=== PATIENT | female | born 1985 | race American Indian/Alaskan Native ===

== ENCOUNTER 2016-12-18 19:59 | Emergency (ER) | payer SELFPAY ==
[2016-12-18] MEDS ORDERED: MOTRIN PO ONE (20:15)
[2016-12-18] MEDS ORDERED: MOTRIN ONE (20:19)
[2016-12-18 20:23] VITALS: BP 140/90
[2016-12-18] MEDS ORDERED: NORCO 5/325 PO ONE (21:04)
--- NOTE | 2016-12-18 21:10 | Emergency Department Report ---
ED ENT HPI - General Chief complaint: Dental/Oral Stated complaint: TOOTH INFECTION Time Seen by Provider: 12/18/16 21:01 Source: patient Mode of arrival: Ambulatory Limitations: No Limitations - History of Present Illness Initial comments: pt is a 31 y/o aaf with hx of infected dental carries x 2 months who presents for dental pain that has increased over past 2 weeks pt has been unable to make dental appointment until this point, now presents with dental pain and aching 7/ 10 throbbing pain is relieved by nothing, pain is exacerbated by hot and cold sensation pt unable to eat on right side, pt is tolerating po intake on left side, last meal this evening, pt seen at other ed on and dx with dental abscess, however pt did not get medications or follow up with dentist yet, pt presents tonight requesting pain medication. MD complaint: tooth pain Onset/Timin -: week(s) Location: tooth # (32) Severity: moderate Severity scale (0 -10): 7 Quality: aching, sharp Consistency: constant Improves with: other (nothing tried) Worsens with: eating Associated Symptoms: gum swelling, toothache. denies: fever, cough, pain with swallowing, sore throat, tinnitus, hearing loss, discharge from ear, rhinorrhea - Related Data Previous Rx's Medication Instructions Recorded Last Taken Type Amoxicillin/K Clav Tab [Augmentin 1 tab PO Q12HR #20 tab 12/18/16 Unknown Rx 875 mg] Chlorhexidine Mouthwash [Peridex] 15 ml MM BID #1 bottle 12/18/16 Unknown Rx Tramadol HCl [Ultram ER] 300 mg PO Q6H #24 tab.er.24h 12/18/16 Unknown Rx Allergies Allergy/AdvReac Type Severity Reaction Status Date / Time No Known Allergies Allergy Verified 12/18/16 20:21 ED Dental HPI - General Chief complaint: Dental/Oral Stated complaint: TOOTH INFECTION Time Seen by Provider: 12/18/16 21:01 Source: patient Mode of arrival: Ambulatory Limitations: No Limitations - Related Data Previous Rx's Medication Instructions Recorded Last Taken Type Amoxicillin/K Clav Tab [Augmentin 1 tab PO Q12HR #20 tab 12/18/16 Unknown Rx 875 mg] Chlorhexidine Mouthwash [Peridex] 15 ml MM BID #1 bottle 12/18/16 Unknown Rx Tramadol HCl [Ultram ER] 300 mg PO Q6H #24 tab.er.24h 12/18/16 Unknown Rx Allergies Allergy/AdvReac Type Severity Reaction Status Date / Time No Known Allergies Allergy Verified 12/18/16 20:21 ED Review of Systems ROS: Stated complaint: TOOTH INFECTION Other details as noted in HPI Constitutional: denies: chills, fever Eyes: denies: eye pain, eye discharge, vision change ENT: dental pain. denies: ear pain, throat pain, hearing loss, epistaxis, congestion Respiratory: denies: cough, shortness of breath, wheezing Cardiovascular: denies: chest pain, palpitations Endocrine: no symptoms reported Gastrointestinal: denies: abdominal pain, nausea, diarrhea Genitourinary: denies: urgency, dysuria, discharge Musculoskeletal: denies: back pain, joint swelling, arthralgia Skin: denies: rash, lesions Neurological: denies: headache, weakness, paresthesias Psychiatric: denies: anxiety, depression Hematological/Lymphatic: denies: easy bleeding, easy bruising ED Past Medical Hx - Past Medical History Previous Medical History?: No - Surgical History Past Surgical History?: No - Medications Home Medications: Home Medications Medication Instructions Recorded Confirmed Last Taken Type Amoxicillin/K Clav Tab [Augmentin 1 tab PO Q12HR #20 tab 12/18/16 Unknown Rx 875 mg] Chlorhexidine Mouthwash [Peridex] 15 ml MM BID #1 bottle 12/18/16 Unknown Rx Tramadol HCl [Ultram ER] 300 mg PO Q6H #24 tab.er.24h 12/18/16 Unknown Rx ED Physical Exam - General Limitations: No Limitations General appearance: alert, in no apparent distress - Head Head exam: Present: atraumatic, normocephalic - Eye Eye exam: Present: normal appearance - ENT ENT exam: Present: mucous membranes moist, TM's normal bilaterally, normal external ear exam - Expanded ENT Exam Expanded Mouth exam: Present: tongue normal. Absent: drooling, trismus, muffled voice, tongue elevation Teeth exam: Present: dental caries, dental tenderness # (32). Absent: gingival enlargement 1 - Dental Tenderness, Other (mild swelling erythema) Throat exam: Positive: normal inspection - Neck Neck exam: Present: normal inspection, full ROM. Absent: lymphadenopathy, thyromegaly - Respiratory Respiratory exam: Present: normal lung sounds bilaterally. Absent: respiratory distress - Cardiovascular Cardiovascular Exam: Present: regular rate, normal rhythm. Absent: systolic murmur, diastolic murmur, rubs, gallop - GI/Abdominal GI/Abdominal exam: Present: soft - Rectal Rectal exam: Present: deferred - Back Exam Back exam: Present: normal inspection - Neurological Exam Neurological exam: Present: alert, oriented X3 - Psychiatric Psychiatric exam: Present: normal affect, normal mood - Skin Skin exam: Present: warm, dry, intact, normal color. Absent: rash ED Course Vital Signs 12/18/16 20:10 Temperature 98.9 F Pulse Rate 80 Respiratory 18 Rate Blood Pressure 140/90 O2 Sat by Pulse 98 Oximetry ED Medical Decision Making - Medical Decision Making pt is a 31 y/o aaf with hx of infected dental carries x 2 months who presents for dental pain that has increased over past 2 weeks pt has been unable to make dental appointment until this point, now presents with dental pain and aching 7/ 10 throbbing pain is relieved by nothing, pain is exacerbated by hot and cold sensation pt unable to eat on right side, pt is tolerating po intake on left side, last meal this evening, pt seen at other ed on and dx with dental abscess, however pt did not get medications or follow up with dentist yet, pt presents tonight requesting pain medication. exam: infected dental caries to # 32 mild gum erythema and swelling mild facial tenderness and swelling, there is no trismus no ear pain no throat pain no fever pt is tolerating po intake eating just prior to exam. plan: augmentin, peridex, ultram pt will follow with [facility] [place] [phone] [facility] [phone] call to set up appointment pt advised to take medications as prescribed , pt verbalized agreement understanding of discharge plan. Critical care attestation.: If time is entered above; I have spent that time in minutes in the direct care of this critically ill patient, excluding procedure time. ED Disposition Clinical Impression: Infected dental caries Disposition: TO HOME OR SELFCARE Is pt being admited?: No Does the pt Need Aspirin: No Condition: Good Instructions: Dental Caries (ED) Additional Instructions: follow up with [facility] [phone] Prescriptions: Amoxicillin/K Clav Tab [Augmentin 875 mg] 1 tab PO Q12HR #20 tab Chlorhexidine Mouthwash [Peridex] 15 ml MM BID #1 bottle Tramadol HCl [Ultram ER] 300 mg PO Q6H #24 tab.er.24h Forms: Work/School Release Form(ED) Time of Disposition: 21:22
== END 2016-12-18 21:25 | disposition home or self-care (01) ==
LOC: ED 19:59
DX: K02.9 Dental caries, unspecified (principal); K04.7 Periapical abscess without sinus
CPT/HCPCS: 99282

== ENCOUNTER 2018-12-07 15:00 | Emergency (ER) | payer MEDICAID ==
--- NOTE | 2018-12-07 15:14 | Event Note ---
ED Screening Note Date of service: 12/07/18 Time: 15:11 ED Screening Note: 32 y female presents for vaginal bleeding and pelvic cramping stating she feels her mirena poking out mirena palced almost 6 years This initial assessment/diagnostic orders/clinical plan/treatment(s) is/are subject to change based on patients health status, clinical progression and re- assessment by fellow clinical providers in the ED. Further treatment and workup at subsequent clinical providers discretion. Patient/guardian urged not to elope from the ED as their condition may be serious if not clinically assessed and managed. Initial orders include: ua,upt
[2018-12-07 17:13] LABS: Bilirubin,Urine NEG (Negative); Blood,Urine NEG (Negative); Color,Urine Yellow (Yellow); HCG Qualitative,Urine Negative (Negative); Mucus,Urine 1+ /HPF; Protein,Urine <15 mg/dL mg/dL (Negative); Urobilinogen,Urine < 2.0 mg/dL (<2.0)
[2018-12-07] MEDS ORDERED: ULTRAM PO ONE (19:12)
--- NOTE | 2018-12-07 20:34 | Ultrasound Report ---
Transabdominal and transvaginal pelvic ultrasound INDICATION / CLINICAL INFORMATION: Pelvic pain; IUD problem. COMPARISON: None available. FINDINGS: The study is technically difficult due to a retroverted uterus and patient discomfort. Transabdominal images demonstrate that the uterus measures 8.0 x 4.6 x 5.5 cm. The endometrial stripe is not well s een. I do not identify the IUD. Neither ovary is identified. Images of the urinary bladder are normal . Transvaginal scanning demonstrates the endometrial stripe measures 3.7 mm. There is questionable visu alization of the IUD in the endometrial cavity on one image. The right ovary measures 3.0 x 2.5 x 3.2 cm. The left ovary is not seen. No free fluid is identified. IMPRESSION: Suboptimal, difficult examination. There is questionable visualization of the IUD in the endometrial cavity on one image. This is not a definite finding however. Signer Name: Juan Tavarez MD Signed: 12/07/2018 8:30 PM Workstation Name: [id number]
--- NOTE | 2018-12-07 22:03 | Emergency Department Report ---
ED Female HPI - General Chief complaint: Vaginal Bleeding Stated complaint: IUD/SEVERE PAIN AND BLEEDING Time Seen by Provider: 12/07/18 15:11 Source: patient Mode of arrival: Ambulatory Limitations: No Limitations - History of Present Illness Initial comments: Patient 32-year-old -[place] female who presents for vaginal bleeding spotting for 3 months patient has IUD states she's ready for to come out she's had a for the last 5 years there's no fevers no chills no nausea no vomiting Denies vaginal discharge /R menstrual cycle 3 months ago Complaint: vaginal bleeding Onset/Timin -: month(s) Location: suprapubic Radiation: non-radiating Severity: moderate Severity scale (0 -10): 4 Quality: cramping Consistency: constant Improves with: none Worsens with: none Are you Now?: No Last Menstrual Period: 09/28/18 EDC: 07/05/19 Associated Symptoms: vaginal bleeding. denies: dysuria, hematuria - Related Data Sexually active: Yes : 4 Para: 4 A: 0 Previous Rx's Medication Instructions Recorded Last Taken Type Amoxicillin/K Clav Tab [Augmentin 1 tab PO Q12HR #20 tab 12/18/16 Unknown Rx 875 mg] Chlorhexidine Mouthwash [Peridex] 15 ml MM BID #1 bottle 12/18/16 Unknown Rx Tramadol HCl [Ultram ER] 300 mg PO Q6H #24 tab.er.24h 12/18/16 Unknown Rx Ibuprofen [Motrin 800 MG tab] 800 mg PO Q8HR PRN #30 tablet 12/07/18 Unknown Rx Nitrofurantoin [place]/M-Cryst 100 mg PO BID 7 Days #14 capsule 12/07/18 Unknown Rx [Macrobid CAP] Allergies Allergy/AdvReac Type Severity Reaction Status Date / Time No Known Allergies Allergy Verified 12/18/16 20:21 ED Review of Systems ROS: Stated complaint: IUD/SEVERE PAIN AND BLEEDING Other details as noted in HPI Constitutional: denies: chills, fever Eyes: denies: eye pain, eye discharge, vision change ENT: denies: ear pain, throat pain Respiratory: denies: cough, shortness of breath, wheezing Cardiovascular: denies: chest pain, palpitations Endocrine: no symptoms reported Gastrointestinal: denies: abdominal pain, nausea, vomiting, diarrhea Genitourinary: frequency, abnormal menses. denies: urgency, dysuria, hematuria, discharge, dyspareunia Musculoskeletal: denies: back pain, joint swelling, arthralgia Skin: denies: rash, lesions Neurological: denies: headache, weakness, numbness, paresthesias, confusion, vertigo Psychiatric: denies: anxiety, depression Hematological/Lymphatic: denies: easy bleeding, easy bruising ED Past Medical Hx - Past Medical History Previous Medical History?: No - Surgical History Past Surgical History?: No - Social History Smoking Status: Never Smoker Substance Use Type: Marijuana - Medications Home Medications: Home Medications Medication Instructions Recorded Confirmed Last Taken Type Amoxicillin/K Clav Tab [Augmentin 1 tab PO Q12HR #20 tab 12/18/16 Unknown Rx 875 mg] Chlorhexidine Mouthwash [Peridex] 15 ml MM BID #1 bottle 12/18/16 Unknown Rx Tramadol HCl [Ultram ER] 300 mg PO Q6H #24 tab.er.24h 12/18/16 Unknown Rx Ibuprofen [Motrin 800 MG tab] 800 mg PO Q8HR PRN #30 tablet 12/07/18 Unknown Rx Nitrofurantoin [place]/M-Cryst 100 mg PO BID 7 Days #14 capsule 12/07/18 Unknown Rx [Macrobid CAP] ED Physical Exam - General Limitations: No Limitations General appearance: alert, in no apparent distress - Head Head exam: Present: atraumatic, normocephalic - Eye Eye exam: Present: normal appearance, PERRL, EOMI Pupils: Present: normal accommodation - ENT ENT exam: Present: normal orophraynx, mucous membranes moist, TM's normal bilaterally, normal external ear exam - Neck Neck exam: Present: normal inspection, full ROM. Absent: tenderness, meningismus, lymphadenopathy, thyromegaly - Respiratory Respiratory exam: Present: normal lung sounds bilaterally, wheezes. Absent: respiratory distress, stridor, chest wall tenderness - Cardiovascular Cardiovascular Exam: Present: regular rate, normal rhythm, normal heart sounds. Absent: systolic murmur, diastolic murmur, rubs, gallop - GI/Abdominal GI/Abdominal exam: Present: soft, tenderness ( superpubic ), normal bowel sounds, hernia. Absent: distended, guarding, rebound, rigid, bruit - Rectal Rectal exam: Present: deferred - External exam: Present: other (deferred by patient ) - Extremities Exam Extremities exam: Present: normal inspection, normal capillary refill. Absent: full ROM, tenderness, pedal edema, joint swelling, calf tenderness - Back Exam Back exam: Present: normal inspection. Absent: full ROM, tenderness, CVA tenderness (R), CVA tenderness (L), muscle spasm, paraspinal tenderness, rash noted - Neurological Exam Neurological exam: Present: alert, oriented X3, CN II-XII intact, normal gait, reflexes normal. Absent: motor sensory deficit - Psychiatric Psychiatric exam: Present: normal affect, normal mood - Skin Skin exam: Present: warm, dry, intact, normal color. Absent: rash ED Course Vital Signs 12/07/18 12/07/18 15:08 19:23 Pulse Rate 82 Respiratory 16 16 Rate Blood Pressure 111/71 O2 Sat by Pulse 100 Oximetry ED Medical Decision Making - Lab Data Labs 12/07/18 16:15 Urine Color Yellow Urine Turbidity Slightly-cloudy Urine pH 5.0 Ur Specific [place] 1.016 Urine Protein <15 mg/dl Urine Glucose (UA) Neg Urine Ketones Neg Urine Blood Neg Urine Nitrite Neg Urine Bilirubin Neg Urine Urobilinogen < 2.0 Ur Leukocyte Esterase Mod Urine WBC (Auto) 8.0 H Urine RBC (Auto) 3.0 U Epithel Cells (Auto) 8.0 Urine Mucus 1+ Urine HCG, Qual Negative - Radiology Data Radiology results: report reviewed, image reviewed Ordering Physician: GREGORY GOETZ NP Date of Service: 12/07/18 Procedure(s): US transvaginal Accession Number(s): [id number] cc: GREGORY GOETZ NP Transabdominal and transvaginal pelvic ultrasound INDICATION / CLINICAL INFORMATION: Pelvic pain; IUD problem. COMPARISON: None available. FINDINGS: The study is technically difficult due to a retroverted uterus and patient discomfort. Transabdominal images demonstrate that the uterus measures 8.0 x 4.6 x 5.5 cm. The endometrial stripe is not well seen. I do not identify the IUD. Neither ovary is identified. Images of the urinary bladder are normal. Transvaginal scanning demonstrates the endometrial stripe measures 3.7 mm. There is questionable visualization of the IUD in the endometrial cavity on one image. The right ovary measures 3.0 x 2.5 x 3.2 cm. The left ovary is not seen. No free fluid is identified. IMPRESSION: Suboptimal, difficult examination. There is questionable visualization of the IUD in the endometrial cavity on one image. This is not a definite finding however. Signer Name: Juan Tavarez MD Signed: 12/07/2018 8:30 PM Workstation Name: [id number] Transcribed By: RT Dictated By: Juan Tavarez MD Electronically Authenticated By: Juan Tavarez MD Signed Date/Time: 12/07/182029 DD/ 25 TD/TT: - Medical Decision Making Ultrasound questionable ED UA positive for leukocytes , white cells, , plan treatment for UTI follow with [employer] for IUD removal, pt verbalized agreement and understanding of same. Critical care attestation.: If time is entered above; I have spent that time in minutes in the direct care of this critically ill patient, excluding procedure time. ED Disposition Clinical Impression: UTI (urinary tract infection) Qualifiers: Urinary tract infection type: acute cystitis Hematuria presence: without judson turia Qualified Code(s): N30.00 - Acute cystitis without hematuria IUD complication Qualifiers: Device complication type: unspecified Encounter type: initial encounter Qualified Code(s): T83.9XXA - Unspecified complication of genitourinary prosthetic device, implant and graft, initial encounter Disposition: - TO HOME OR SELFCARE Is pt being admited?: Yes Does the pt Need Aspirin: No Condition: Stable Instructions: Urinary Tract Infection in Women (ED) Prescriptions: Nitrofurantoin [place]/M-Cryst [Macrobid CAP] 100 mg PO BID 7 Days #14 capsule Ibuprofen [Motrin 800 MG tab] 800 mg PO Q8HR PRN #30 tablet PRN Reason: pain fever Referrals: CHANELLE MARTIN MD [Staff Physician] - 3-5 Days Forms: Work/School Release Form(ED) Time of Disposition: 22:13
[2018-12-07 22:26] VITALS: BP 112/78
== END 2018-12-07 22:25 | disposition home or self-care (01) ==
LOC: ED 15:00
DX: T83.83XA Hemorrhage due to genitourinary prosthetic devices, implants and grafts, initial encounter (principal); N39.0 Urinary tract infection, site not specified; F12.90 Cannabis use, unspecified, uncomplicated; Z79.899 Other long term (current) drug therapy; Y84.8 Other medical procedures as the cause of abnormal reaction of the patient, or of later complication, without mention of misadventure at the time of the procedure; Y92.89 Other specified places as the place of occurrence of the external cause
CPT/HCPCS: 76830; 76856; 81001; 81025; 99284

== ENCOUNTER 2019-11-30 16:37 | Emergency (ER) | payer MEDICAID ==
[2019-12-01] MEDS ORDERED: SODIUM CHLORIDE 0.9% 1000 ML 1,000 ML IV ONE (04:14)
[2019-12-01] MEDS ORDERED: methylPREDNISolone Sod Succinate 125 MG/2 ML INJ IV ONE (04:14)
--- NOTE | 2019-12-01 04:16 | Emergency Department Report ---
- General Chief Complaint: Upper Respiratory Infection Stated Complaint: SOB/SORE THROAT/TONGUE IS NUMB PUI?: No Time Seen by Provider: 12/01/19 02:53 Source: patient Mode of arrival: Ambulatory Limitations: No Limitations - History of Present Illness Initial Comments: Patient is a 33-year-old female that presents emergency room with complaints of sore throat, coughing, body aches, chills and shortness of breath. Patient states her symptoms started 2 days ago. Patient states her symptoms are worsening. Patient states her body aches are a 10 out of 10. Patient states that her throat feels scratchy. Patient states her symptoms are better with res t and worse with exertion. 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 Patient's not sure if she is coming contact with [place]. Patient denies nausea and vomiting. Patient denies diarrhea. Patient denies chest pain. Patient also complains of shortness of breath. Patient states her shortness of breath is better with rest and worse with exertion. MD Complaint: cough, sore throat, rhinorrhea -: Sudden, days(s) Severity: severe Severity scale (0 -10): 10 Consistency: constant Improves With: OTC cold medicine Worsens With: activity, deep breaths Associated Symptoms: chills, myalgias, rhinorrhea, sore throat, cough, shortness of breath. denies: fever, diaphoresis, headache, stiff neck, chest pain, abdominal pain, nausea, vomiting, diarrhea, dysuria, rash, confusion, right sweats, weight loss, epistaxis Treatments Prior to Arrival: Acetaminophen - Related Data Previous Rx's Medication Instructions Recorded Last Taken Type Amoxicillin/K Clav Tab [Augmentin 1 tab PO Q12HR #20 tab 12/18/16 Unknown Rx 875 mg] Chlorhexidine Mouthwash [Peridex] 15 ml MM BID #1 bottle 12/18/16 Unknown Rx Tramadol HCl [Ultram ER] 300 mg PO Q6H #24 tab.er.24h 12/18/16 Unknown Rx Ibuprofen [Motrin 800 MG tab] 800 mg PO Q8HR PRN #30 tablet 12/07/18 Unknown Rx Nitrofurantoin Roosevelt/M-Cryst 100 mg PO BID 7 Days #14 capsule 12/07/18 Unknown Rx [Macrobid CAP] Acetaminophen/Codeine [Tylenol 1 tab PO Q6H PRN #12 tab 12/01/19 Unknown Rx /Codeine # 3 tab] Azithromycin [Zithromax TAB] 500 mg PO QDAY 5 Days #5 tablet 12/01/19 Unknown Rx Dexamethasone [Taperdex] 1.5 mg PO DAILY 7 Days #1 tab.ds.pk 12/01/19 Unknown Rx Allergies Allergy/AdvReac Type Severity Reaction Status Date / Time No Known Allergies Allergy Verified 12/18/16 20:21 ED Review of Systems ROS: Stated complaint: SOB/SORE THROAT/TONGUE IS NUMB Other details as noted in HPI Constitutional: chills, malaise. denies: fever Eyes: denies: eye pain, eye discharge, vision change ENT: throat pain. denies: ear pain Respiratory: cough, shortness of breath. denies: wheezing Cardiovascular: denies: chest pain, palpitations Endocrine: no symptoms reported Gastrointestinal: denies: abdominal pain, nausea, diarrhea Genitourinary: denies: urgency, dysuria, discharge Musculoskeletal: denies: back pain, joint swelling, arthralgia Skin: denies: rash, lesions Neurological: denies: headache, weakness, paresthesias Psychiatric: denies: anxiety, depression Hematological/Lymphatic: denies: easy bleeding, easy bruising ED Past Medical Hx - Past Medical History Previous Medical History?: No - Surgical History Past Surgical History?: No - Family History Family history: no significant - Social History Smoking Status: Never Smoker Substance Use Type: Marijuana - Medications Home Medications: Home Medications Medication Instructions Recorded Confirmed Last Taken Type Amoxicillin/K Clav Tab [Augmentin 1 tab PO Q12HR #20 tab 12/18/16 Unknown Rx 875 mg] Chlorhexidine Mouthwash [Peridex] 15 ml MM BID #1 bottle 12/18/16 Unknown Rx Tramadol HCl [Ultram ER] 300 mg PO Q6H #24 tab.er.24h 12/18/16 Unknown Rx Ibuprofen [Motrin 800 MG tab] 800 mg PO Q8HR PRN #30 tablet 12/07/18 Unknown Rx Nitrofurantoin Roosevelt/M-Cryst 100 mg PO BID 7 Days #14 capsule 12/07/18 Unknown Rx [Macrobid CAP] Acetaminophen/Codeine [Tylenol 1 tab PO Q6H PRN #12 tab 12/01/19 Unknown Rx /Codeine # 3 tab] Azithromycin [Zithromax TAB] 500 mg PO QDAY 5 Days #5 tablet 12/01/19 Unknown Rx Dexamethasone [Taperdex] 1.5 mg PO DAILY 7 Days #1 tab.ds.pk 12/01/19 Unknown Rx ED Physical Exam - General Limitations: No Limitations General appearance: alert, in no apparent distress - Head Head exam: Present: atraumatic, normocephalic - Eye Eye exam: Present: normal appearance - ENT ENT exam: Present: normal orophraynx, mucous membranes moist - Neck Neck exam: Present: normal inspection - Respiratory Respiratory exam: Present: normal lung sounds bilaterally. Absent: respiratory distress, wheezes, rales, chest wall tenderness, accessory muscle use - Cardiovascular Cardiovascular Exam: Present: regular rate, normal rhythm. Absent: systolic murmur, diastolic murmur, rubs, gallop - GI/Abdominal GI/Abdominal exam: Present: soft, normal bowel sounds. Absent: distended, tenderness, guarding - Rectal Rectal exam: Present: deferred - Extremities Exam Extremities exam: Present: normal inspection - Back Exam Back exam: Present: normal inspection - Neurological Exam Neurological exam: Present: alert, oriented X3 - Psychiatric Psychiatric exam: Present: normal affect, normal mood - Skin Skin exam: Present: warm, dry, intact, normal color. Absent: rash ED Course Vital Signs 11/30/19 12/01/19 12/01/19 17:22 03:06 03:11 Temperature 98.1 F 98.3 F Pulse Rate 81 86 Respiratory 18 16 18 Rate Blood Pressure 126/88 Blood Pressure 119/85 [Left] O2 Sat by Pulse 99 99 Oximetry 12/01/19 12/01/19 12/01/19 03:16 03:30 03:45 Temperature Pulse Rate 80 86 78 Respiratory 17 21 26 H Rate Blood Pressure 152/125 152/125 141/86 Blood Pressure [Left] O2 Sat by Pulse 76 L 100 99 Oximetry 12/01/19 12/01/19 12/01/19 04:00 04:16 04:30 Temperature Pulse Rate 86 72 86 Respiratory 16 20 15 Rate Blood Pressure 141/86 141/86 141/86 Blood Pressure [Left] O2 Sat by Pulse 99 98 99 Oximetry 12/01/19 04:46 Temperature Pulse Rate 74 Respiratory 14 Rate Blood Pressure 131/66 Blood Pressure [Left] O2 Sat by Pulse 100 Oximetry - Reevaluation(s) Reevaluation #1: Patient given fluids and steroids. Patient states that she is feeling a little bit better. Patient has had normal oxygen saturations the entire time in the ER. Patient was ambulated and her oxygen saturations stayed stable. Patient did not desat. I discussed all results and clinical findings with patient. I discussed plan of care with patient. Patient agrees with plan of care. Patient is stable for di scharge. Patient will be discharged home. Patient given discharge instructions. Patient voiced understanding of discharge instructions. 12/01/19 05:08 ED Medical Decision Making - Lab Data Result diagrams: 12/01/19 04:18 12/01/19 04:18 - Radiology Data Radiology results: report reviewed, image reviewed interpreted by me: Chest x-ray: No acute findings, no pneumonia, no pneumothorax, no fractured ribs. CHEST 1 VIEW, 12/01/2019 4:15 AM CLINICAL INFORMATION/INDICATION: Shortness of breath COMPARISON: None FINDINGS: SUPPORT DEVICES: None. HEART: The cardiac silhouette is normal in size. LUNGS/PLEURA: The lungs are clear of focal airspace disease or significant pleural effusion. ADDITIONAL FINDINGS: No additional acute findings. IMPRESSION: 1. No evidence of acute cardiopulmonary process. - Medical Decision Making Patient is a 33-year-old female who presents emergency room with multiple complaints. Patient's complaints are consistent with a possible COVID-19 infection. Patient complained of shortness of breath, sore throat, cough, body aches. Patient's oxygen saturation remained normal the entire time in the ER. Patient did not have any instability to her oxygen while she was ambulating. Patient had labs done which were unremarkable. Patient had a chest x-ray which was negative for acute findings. Patient given COVID-19 instructions. Patient given discharge structures. Patient stable for discharge. - Differential Diagnosis COVID-19, upper respiratory infection, body aches, cough Critical care attestation.: If time is entered above; I have spent that time in minutes in the direct care of this critically ill patient, excluding procedure time. ED Disposition Clinical Impression: Suspected COVID-19 virus infection, Cough, SOB (shortness of breath) URI (upper respiratory infection) Qualifiers: URI type: unspecified URI Qualified Code(s): J06.9 - Acute upper respiratory infection, unspecified Disposition: - TO HOME OR SELFCARE Is pt being admited?: No Does the pt Need Aspirin: No Condition: Stable Instructions: COVID-19 Additional Instructions: Patient to follow-up with primary care in 2 to 3 days. Patient to follow-up with health department and outpatient [facility] testing in 2 to 3 days. Patient to rest. Patient to increase water.. Patient to take Tylenol as needed for pain. Patient to take meds as directed. Patient to have COVID testing done. Patient to self quarantine for 14 days. Patient to return to the ER if condition worsens, changes or new symptoms arise. Prescriptions: Dexamethasone [Taperdex] 1.5 mg PO DAILY 7 Days #1 tab.ds.pk Acetaminophen/Codeine [Tylenol /Codeine # 3 tab] 1 tab PO Q6H PRN #12 tab PRN Reason: Pain , Severe (7-10) Azithromycin [Zithromax TAB] 500 mg PO QDAY 5 Days #5 tablet Referrals: PRIMARY CARE, [Primary Care Provider] - 2-3 Days Time of Disposition: 05:16
[2019-12-01 04:45] LABS: Basophils % (Auto) 0.4 % (0.0-1.8); Eosinophils # (Auto) 0.2 K/mm3 (0.0-0.4); Eosinophils % (Auto) 2.6 % (0.0-4.3); Hematocrit 39.6 % (30.3-42.9); Hemoglobin 13.2 gm/dl (10.1-14.3); Lymphocytes # (Auto) 3.2 K/mm3 (1.2-5.4); Lymphocytes % (Auto) 47.1 % (13.4-35.0); Mean Corpuscular HGB Conc 33 % (30-34); Mean Corpuscular Volume 100 fl (79-97); Monocytes # (Auto) 0.5 K/mm3 (0.0-0.8); Monocytes % (Auto) 8.1 % (0.0-7.3); Platelet Count 247 K/mm3 (140-440); Red Blood Count 3.96 M/mm3 (3.65-5.03); Red Cell Distribution Width 13.5 % (13.2-15.2)
--- NOTE | 2019-12-01 04:46 | XRay Report ---
CHEST 1 VIEW, 12/01/2019 4:15 AM CLINICAL INFORMATION/INDICATION: Shortness of breath COMPARISON: None FINDINGS: SUPPORT DEVICES: None. HEART: The cardiac silhouette is normal in size. LUNGS/PLEURA: The lungs are clear of focal airspace disease or significant pleural effusion. ADDITIONAL FINDINGS: No additional acute findings. IMPRESSION: 1. No evidence of acute cardiopulmonary process. Signer Name: Vika Perez MD Signed: 12/01/2019 4:42 AM Workstation Name: [id number]
[2019-12-01 04:47] VITALS: BP 131/66
[2019-12-01 04:52] LABS: Blood Urea Nitrogen 8 mg/dL (7-17); Calcium 9.2 mg/dL (8.4-10.2); Hemolysis Index 2
[2019-12-01 04:53] LABS: BUN/Creatinine Ratio 11
== END 2019-12-01 06:41 | disposition home or self-care (01) ==
LOC: ED 16:37
DX: J06.9 Acute upper respiratory infection, unspecified (principal); F12.10 Cannabis abuse, uncomplicated; Z20.828 Contact with and (suspected) exposure to other viral communicable diseases; Z79.899 Other long term (current) drug therapy
CPT/HCPCS: 36415; 71045; 80048; 85025; 96361; 96374; 99284; J2930; J7030